=== PATIENT | female | born 1995 | race Caucasian/White ===

== ENCOUNTER 2021-04-27 18:00 | Inpatient (IN) | payer OTHER ==
[~2021-04-27 18:00] MED LIST: Iopamidol-370 76% 500 ML 1 ML ONE
[2021-04-27 21:01] LABS: #Eosinphils 0.3 thou/uL (0.0-0.7); #Lymphocytes 2.3 thou/uL (1.20-3.40); #Neutrophils 4.8 thou/uL (1.40-6.50); %Basophils 0.5 % (0.0-1.0); %Eosinophils 4.1 % (0.0-10.0); %Lymphocytes 27.1 % (21.0-51.0); %Monocytes 11.8 % (0.0-10.0); %Neutrophils 56.5 % (42.0-75.0); Hemoglobin 14.8 g/dL (12.0-16.0); Mean Corpuscular HGB CONC 34.1 g/dL (32.0-36.0); Mean Platelet Volume 7.3 fL (7.4-10.4); Platelet Count 326 thou/uL (130-400); Red Blood Cell (RBC) Count 5.09 mill/uL (4.20-5.40); White Blood Cell (WBC) Count 8.5 thou/uL (4.8-10.8)
[2021-04-27] MEDS ORDERED: Acetaminophen 325 MG TAB ONE (21:14)
[2021-04-27 21:24] LABS: ALT (SGPT) 407 U/L (8-55); AST (SGOT) 376 U/L (5-34); Albumin 4.1 g/dL (3.5-5.0); Alkaline Phosphatase 149 U/L (40-110); Anion Gap 12 mmol/L (10-20); BUN (Urea Nitrogen) 9 mg/dL (7.0-18.7); Bilirubin, Total 1.5 mg/dL (0.2-1.2); Calc. Creatinine Clearance 0 mL/min (70-130); Calcium 9.5 mg/dL (7.8-10.44); Carbon Dioxide 28 mmol/L (22-29); Chloride 100 mmol/L (98-107); Globulin 3.2 g/dL (2.4-3.5); Glucose 89 mg/dL (70-105); Lipase 37 U/L (8-78); Potassium 3.6 mmol/L (3.5-5.1); Protein, Total 7.3 g/dL (6.0-8.3); Sodium 136 mmol/L (136-145)
[2021-04-27 21:30] LABS: BHCG - Serum Negative (NEGATIVE); Pregs Control Background? CLEAR/WHITE (CLR/WHITE); Pregs Control Bar Appear? YES (CONTROL BAR)
[2021-04-28] MEDS ORDERED: diphenhydrAMINE 50 MG/ML VIAL ONE (00:52)
[2021-04-28] MEDS ORDERED: Morphine 4 MG/ML VIAL SLOW IVP PRN (02:53)
[2021-04-28 02:57] LABS: SARS-CoV-2 NAA Rapid Test Not Detected (NotDetected)
[2021-04-28] MEDS ORDERED: Ondansetron PF 4 MG/2 ML Vial IVP PRN (03:00)
[2021-04-28] MEDS ORDERED: Ondansetron ODT 4 MG TAB SL PRN (03:00)
[2021-04-28 03:04] VITALS: BMI 27.4
[2021-04-28] MEDS: Lactated Ringer's 1,000 ML IV SCH ×2 (07:22→16:03)
[2021-04-28] MEDS ORDERED: FLU VACC QS2021-22(6MOS UP)/PF 60 MCG/0.5 ML SYRINGE IM ONE (09:00)
[2021-04-28] MEDS ORDERED: Sodium Chloride 0.9% 0 ML ONE (13:13)
[2021-04-28] MEDS ORDERED: cefOXitin Sodium/Dextrose 2 GM/50 ML BAG ONE (13:13)
[2021-04-28] MEDS ORDERED: Midazolam HCl 2 mg/2 ml Vial ONE (13:14)
[2021-04-28] MEDS ORDERED: Famotidine/PF 20 mg/2ml Vial ONE (13:14)
[2021-04-28] MEDS ORDERED: Lidocaine 1% w/Epinephrine 1:100K 20 ML VIAL ONE (13:16)
[2021-04-28] MEDS ORDERED: Bupivacaine 0.25% HCL 30 ML VIAL ONE (13:16)
[2021-04-28] MEDS ORDERED: Iothalamate Meglumine 60% 50 ML VIAL FS ONE (13:16)
[2021-04-28] MEDS ORDERED: Fentanyl 100 MCG/2 ML VIAL ONE ×2 (13:32→15:07)
[2021-04-28] MEDS ORDERED: Glycopyrrolate 0.2 MG/ML 5 ML SYRINGE ONE (13:33)
[2021-04-28] MEDS ORDERED: Lidocaine 1% PF 5 ML VIAL ONE (13:33)
[2021-04-28] MEDS ORDERED: Rocuronium Bromide 10 MG/ML (10ML VIAL) ONE (13:33)
[2021-04-28] MEDS ORDERED: Dexamethasone 20 MG/5 ML VIAL ONE (13:33)
[2021-04-28] MEDS ORDERED: Ketorolac Tromethamine 30 MG/ML VIAL ONE (13:33)
[2021-04-28] MEDS ORDERED: Ondansetron PF 4 MG/2 ML Vial ONE (13:33)
[2021-04-28] MEDS ORDERED: PROPOFOL 200 MG/20 ML VIAL ONE (13:33)
[2021-04-28] MEDS ORDERED: HYDROmorphone 2 MG/ML VIAL SLOW IVP PRN (14:46)
[2021-04-28] MEDS ORDERED: Meperidine HCl/PF 25 MG/ML VIAL SLOW IVP PRN (14:46)
[2021-04-28] MEDS ORDERED: Promethazine HCl 25 MG/ML VIAL IM PRN ×2 (14:46→14:48)
[2021-04-28] MEDS ORDERED: Ondansetron HCl/PF 4 MG/2 ML Vial IVP PRN (14:46)
[2021-04-28] MEDS ORDERED: Promethazine HCl 25 MG/ML VIAL IVPB PRN (14:46)
[2021-04-28] MEDS ORDERED: hydrALAZINE 20 MG/ML VIAL SLOW IVP PRN (14:48)
[2021-04-28] MEDS ORDERED: HYDROcodone/Acetaminophen 7.5/325 mg Tablet PO PRN (14:48)
[2021-04-28] MEDS ORDERED: Mag-Al 1200 mg/1200 mg/30 ML UDCUP PO PRN (14:48)
[2021-04-28] MEDS ORDERED: Dextrose 50% Abboject 50 ML SYRINGE SLOW IVP PRN (14:48)
[2021-04-28] MEDS ORDERED: Calcium Carbonate 500 MG ChewTAB PO PRN (14:48)
[2021-04-28] MEDS ORDERED: Dextrose 5% in Water 1,000 ML IV PRN (14:48)
[2021-04-28] MEDS ORDERED: Promethazine HCl 25 MG/ML VIAL ONE (15:21)
[2021-04-28] MEDS ORDERED: Acetaminophen 325 MG TAB PO PRN (15:57)
[2021-04-28] MEDS: D5 1/2 NS w/20 mEq KCL 1,000 ML IV SCH (16:16)
[2021-04-28] MEDS: Morphine 4 MG/ML VIAL SLOW IVP PRN ×2 (16:19→18:32)
[2021-04-28] MEDS: Ondansetron PF 4 MG/2 ML Vial IVP PRN (16:20)
[2021-04-28] MEDS: Famotidine 20 MG TAB PO SCH (21:04)
[2021-04-28] MEDS: HYDROcodone/Acetaminophen 7.5/325 mg Tablet PO PRN (21:04)
[2021-04-28] MEDS: Famotidine/PF 20 mg/2ml Vial SLOW IVP SCH (21:05)
[2021-04-29] MEDS: D5 1/2 NS w/20 mEq KCL 1,000 ML IV SCH ×4 (00:41→15:59)
[2021-04-29] MEDS: Morphine 4 MG/ML VIAL SLOW IVP PRN ×3 (06:11→14:19)
[2021-04-29 08:13] LABS: #Eosinphils 0.1 thou/uL (0.0-0.7); #Lymphocytes 1.5 thou/uL (1.20-3.40); #Monocytes 1.3 thou/uL (0.11-0.59); #Neutrophils 9.1 thou/uL (1.40-6.50); %Basophils 0.3 % (0.0-1.0); %Eosinophils 0.8 % (0.0-10.0); %Lymphocytes 12.7 % (21.0-51.0); %Monocytes 10.9 % (0.0-10.0); %Neutrophils 75.4 % (42.0-75.0); Hemoglobin 12.8 g/dL (12.0-16.0); Mean Corpuscular HGB CONC 33.4 g/dL (32.0-36.0); Mean Corpuscular Hemoglobin 28.5 pg (27.0-31.0); Mean Corpuscular Volume 85.4 fL (78.0-98.0); Mean Platelet Volume 7.3 fL (7.4-10.4); Platelet Count 281 thou/uL (130-400); Red Blood Cell (RBC) Count 4.48 mill/uL (4.20-5.40)
[2021-04-29] MEDS: Famotidine/PF 20 mg/2ml Vial SLOW IVP SCH ×2 (08:33→20:23)
[2021-04-29 08:35] LABS: ALT (SGPT) 334 U/L (8-55); AST (SGOT) 107 U/L (5-34); Albumin 3.6 g/dL (3.5-5.0); Alkaline Phosphatase 166 U/L (40-110); Anion Gap 11 mmol/L (10-20); BUN (Urea Nitrogen) 6 mg/dL (7.0-18.7); Bilirubin, Total 0.6 mg/dL (0.2-1.2); Calc. Creatinine Clearance 137 mL/min (70-130); Calcium 8.9 mg/dL (7.8-10.44); Carbon Dioxide 25 mmol/L (22-29); Chloride 105 mmol/L (98-107); Globulin 2.7 g/dL (2.4-3.5); Glucose 124 mg/dL (70-105); Lipase 23 U/L (8-78); Protein, Total 6.3 g/dL (6.0-8.3); Sodium 137 mmol/L (136-145)
[2021-04-29] MEDS: Famotidine 20 MG TAB PO SCH ×2 (09:00→20:21)
[2021-04-29] MEDS: Ondansetron PF 4 MG/2 ML Vial IVP PRN (10:13)
[2021-04-29] MEDS: HYDROcodone/Acetaminophen 7.5/325 mg Tablet PO PRN ×2 (16:57→22:58)
[2021-04-30] MEDS: D5 1/2 NS w/20 mEq KCL 1,000 ML IV SCH ×4 (01:49→23:44)
[2021-04-30] MEDS: Morphine 4 MG/ML VIAL SLOW IVP PRN ×2 (03:04→12:11)
[2021-04-30] MEDS ORDERED: Meperidine HCl/PF 25 MG/ML VIAL ONE (06:09)
[2021-04-30] MEDS ORDERED: Fentanyl 100 MCG/2 ML VIAL ONE (06:09)
[2021-04-30] MEDS ORDERED: Famotidine/PF 20 mg/2ml Vial ONE (06:09)
[2021-04-30] MEDS ORDERED: SUGAMMADEX SODIUM 200 MG/2 ML VIAL ONE (06:51)
[2021-04-30] MEDS ORDERED: Iothalamate Meglumine 60% 50 ML VIAL FS ONE (07:11)
[2021-04-30] MEDS ORDERED: Indomethacin 50 MG SUPP ONE (07:24)
[2021-04-30] MEDS ORDERED: Midazolam HCl 2 mg/2 ml Vial ONE (07:24)
[2021-04-30] MEDS ORDERED: PROPOFOL 200 MG/20 ML VIAL ONE (07:35)
[2021-04-30] MEDS ORDERED: Dexamethasone 20 MG/5 ML VIAL ONE (07:35)
[2021-04-30] MEDS ORDERED: Ondansetron PF 4 MG/2 ML Vial ONE (07:35)
[2021-04-30] MEDS ORDERED: Lidocaine 1% PF 5 ML VIAL ONE (07:35)
[2021-04-30] MEDS ORDERED: Rocuronium Bromide 10 MG/ML (10ML VIAL) ONE (07:35)
[2021-04-30] MEDS ORDERED: Metoclopramide HCl 10 MG/2 ML VIAL ONE (07:35)
[2021-04-30] MEDS ORDERED: Promethazine HCl 25 MG/ML VIAL IM PRN (08:36)
[2021-04-30] MEDS ORDERED: Ondansetron HCl/PF 4 MG/2 ML Vial IVP PRN (08:36)
[2021-04-30] MEDS ORDERED: PACU-Morphine 4MG/ML VIAL SLOW IVP PRN (08:36)
[2021-04-30] MEDS ORDERED: Meperidine HCl/PF 25 MG/ML VIAL SLOW IVP PRN (08:36)
[2021-04-30] MEDS ORDERED: Promethazine HCl 25 MG/ML VIAL IVPB PRN (08:36)
[2021-04-30] MEDS ORDERED: Promethazine HCl 25 MG/ML VIAL ONE (08:52)
[2021-04-30] MEDS: Famotidine/PF 20 mg/2ml Vial SLOW IVP SCH ×2 (09:44→20:41)
[2021-04-30] MEDS: Famotidine 20 MG TAB PO SCH ×2 (09:55→20:48)
[2021-04-30] MEDS: Ondansetron PF 4 MG/2 ML Vial IVP PRN (12:17)
[2021-04-30] MEDS: HYDROcodone/Acetaminophen 7.5/325 mg Tablet PO PRN ×2 (14:09→20:47)
[2021-05-01] MEDS: HYDROcodone/Acetaminophen 7.5/325 mg Tablet PO PRN (06:49)
[2021-05-01 08:40] VITALS: BP 108/69; TEMP 98.2
[2021-05-01] MEDS: Famotidine 20 MG TAB PO SCH (09:43)
== END 2021-05-01 10:50 | disposition home or self-care (01) | DRG 419 ==
LOC: ERS 18:00 → SJJU 04-28 01:45 → OBSVTOIN 04-30 14:51
PROVIDERS: ADMIT Surgery; ATTEND Surgery
PROC: 0FT44ZZ Resection of Gallbladder, Percutaneous Endoscopic Approach (ICD-10-PCS; principal; 2021-04-28)
PROC: BF131ZZ Fluoroscopy of Gallbladder and Bile Ducts using Low Osmolar Contrast (ICD-10-PCS; 2021-04-28)
PROC: 0FC98ZZ Extirpation of Matter from Common Bile Duct, Via Natural or Artificial Opening Endoscopic (ICD-10-PCS; 2021-04-30)
DX: K80.42 Calculus of bile duct with acute cholecystitis without obstruction (principal); Z20.822 Contact with and (suspected) exposure to COVID-19
CPT/HCPCS: 36415; 47532; 71045; 74177; 74330; 76705; 80053; 83690; 84484; 84703; 85025; 88304; 93005; 96374; 96375; 96376; G0378; J0694; J1100; J1200; J1610; J1885; J2175; J2250; J2270; J2405; J2550; J2704; J3010; J3480; J3490; J7120; Q9961-U8; Q9967; S0020; S0028; U0002

== ENCOUNTER 2021-11-20 23:46 | Emergency (ER) | payer OTHER ==
[2021-11-21 01:57] LABS: BHCG - Serum Negative (NEGATIVE); Pregs Control Background? CLEAR/WHITE (CLR/WHITE); Pregs Control Bar Appear? YES (CONTROL BAR)
[2021-11-21] MEDS ORDERED: Iopamidol-370 76% 500 ML 1 ML ONE (08:51)
== END 2021-11-21 04:31 | disposition home or self-care (01) ==
LOC: ERS 23:46
DX: S30.1XXA Contusion of abdominal wall, initial encounter (principal); S60.811A Abrasion of right wrist, initial encounter; V40.0XXA Car driver injured in collision with pedestrian or animal in nontraffic accident, initial encounter; W22.10XA Striking against or struck by unspecified automobile airbag, initial encounter
CPT/HCPCS: 36415; 71260; 74177; 84703; Q9967